=== PATIENT | female | born 1960 | race Caucasian/White ===

== ENCOUNTER 2017-12-04 08:34 | Day surgery (SDC) | payer OTHER ==
[2017-12-03 14:35] VITALS: BMI 33.5
[2017-12-04] MEDS ORDERED: BUPIVACAINE 0.75% IN DEXTROSE/PF 2ML AMPULE NR ONE (09:24)
[2017-12-04] MEDS ORDERED: LIDOCAINE HCL/PF 2% SDV 5ML VIAL ONE (09:24)
[2017-12-04] MEDS ORDERED: MIDAZOLAM HCL 2 MG/2 ML SINGLE DOSE VIAL ONE (09:24)
[2017-12-04] MEDS ORDERED: PROPOFOL 20 ML ONE ×5 (09:24→11:43)
[2017-12-04] MEDS ORDERED: SUCCINYLCHOLINE CHLORIDE 200 MG/10 ML VIAL ONE (09:28)
[2017-12-04] MEDS ORDERED: SEVOFLURANE 250 ML BTL ONE (09:37)
[2017-12-04] MEDS ORDERED: BUPIVACAINE HCL/PF 0.5% (5MG/ML) 10 ML VIAL ONE (09:37)
[2017-12-04] MEDS ORDERED: DESFLURANE GAS 240 ML BOTTLE IH ONE (09:37)
[2017-12-04] MEDS ORDERED: oxyCODONE HCL 5 MG TABLET PO PRN (12:21)
[2017-12-04] MEDS ORDERED: ONDANSETRON 4 MG/2 ML VIAL IVPUSH PRN (12:21)
[2017-12-04] MEDS ORDERED: ACETAMINOPHEN 1000 MG/100 ML VIAL (NON FORMULARY) IVPB ONE (12:21)
--- NOTE | 2017-12-04 12:22 | HP ---
Satellite [facility] - Chief Complaint History of Present Illness: Painfule varicose veins left leg x years. History Source: Patient Limitations to Obtaining History: No Limitations - Past Medical History Allergies/Adverse Reactions: Allergies Allergy/AdvReac Type Severity Reaction Status Date / Time No Known Drug Allergies Allergy Verified 12/03/17 14:25 Cardiovascular: Yes: HTN, Hyperlipdemia ...LMP: 02/25/12 Endocrine: Yes: Diabetes Mellitus - Current Medications Current Medications: Home Medications Medication Instructions Recorded Aspirin Coated [Ecotrin] 81 mg PO DAILY 05/13/12 Calcium 250Mg/Vit-D 125 Units 2 each PO DAILY 05/13/12 [Oscal 250 mg+D] Krill Oil/[place]-3/Dha/Epa [[place]-3 1 each PO DAILY 05/13/12 Krill Oil Softgel] Levothyroxine [Synthroid] 225 mcg PO DAILY 05/13/12 Fenofibrate,Micronized 134 mg PO DAILY 12/03/17 [Fenofibrate] Losartan Potassium 100 mg PO DAILY 12/03/17 Pravastatin Sodium 20 mg PO DAILY 12/03/17 Sitagliptin Phosphate [Januvia -] 25 mg PO DAILY@0700 12/03/17 Satellite Physical Exam - Physical Examination Vital Signs: Vital Signs Period Temp Pulse Resp BP Sys/[place] Pulse Ox Last 24 Hr 98.1 F-98.1 F 79-79 20-20 113-113/78-78 97 General Appearance: Obese ENT: Clear Lung: Clear to auscultation Heart: Regular rate & rhythm Abdomen: Soft Extremities: No edema, Other (Large varicose veins of left anterolateral thigh and lateral calf.) Satellite Impression/Plan - Impression/Plan Impression: Symptomatic varicose veins left leg Operative Procedure: Microphlebectomy left leg Date to be Performed: 12/04/17
[2017-12-04] MEDS ORDERED: ACETAMINOPHEN 325 MG TABLET (FP) PO PRN ×3 (12:24→12:26)
--- NOTE | 2017-12-04 12:24 | OP ---
Operative Note - Note: Operative Date: 12/04/17 Pre-Operative Diagnosis: Painful varicose veins Operation: Microphlebcectomy left leg, >20 incisions Findings: Multiplelarge varicose veins of left thigh, calf and ankle Post-Operative Diagnosis: Same as Pre-op Surgeon: Brian Ellsworth Anesthesiologist/MANAGER OF RECRUITING: Gagan Crawford Anesthesia: Spinal Specimens Removed: Varicose vein segments Estimated Blood Loss (mls): 100 Operative Report Dictated: Yes
[2017-12-04] MEDS ORDERED: LACTATED RINGERS SOLUTION 1,000 ML IV SCH (12:30)
[2017-12-04] MEDS ORDERED: ACETAMINOPHEN INJECTION 100 ML IVPB ONE (14:05)
[2017-12-04 14:48] VITALS: BP 112/79; PULSE 81; TEMP 98
--- NOTE | 2017-12-04 19:59 | OP ---
DATE OF OPERATION: 12/04/2017 SURGEON: Sunita Neal M.D. PROCEDURE: Microphlebectomy of left leg, greater than 20 incisions. PREOPERATIVE: Painful varicose veins, left leg. POSTOPERATIVE: Painful varicose veins, left leg. ANESTHESIA: Spinal. ANESTHESIOLOGIST: Gagan Crawford M.D. OPERATIVE FINDINGS: There were multiple large varicose veins extending from the anterior left thigh laterally down to the lateral calf. There were also several veins at the posterior calf and anterior ankle area. OPERATIVE PROCEDURE: Following routine patient identification and spinal anesthesia, the left leg was prepped with ChloraPrep. Timeout was performed. The varicose veins had been marked preoperatively on the leg with the patient in standing. Stab avulsion technique was then used to remove the marked veins. In brief, an incision was made over the vein with a [place] blade and the vein was then elevated with a vein hook to the level of the skin, where it was grasped with a clamp. Gentle traction allowed the vein to be slowly from subcutaneous tissues until it avulsed. Pressure was applied and then the next point distal vein was treated in a similar fashion. In this manner, all of the marked veins were removed. Greater than 20 incisions were made in total. Leg was then elevated and washed with saline. The wounds were covered with Xeroform gauze, dry gauze, ABD pads, Kerlix, Webril and Coban wrap from foot to thigh. Patient was then transported to the recovery room in stable condition. SUNITA NEAL M.D. [id number] MTDD
--- NOTE | 2017-12-05 15:18 | PATH ---
Surgical Pathology Report Patient Name: TAHMINA ASHFORD [facility]. Rec. #: [id number] /Age/Gender: 1960 (Age: 57) / F Account: [id number] Location: [facility] Taken: 12/04/2017 Received: 12/04/2017 Reported: 12/05/2017 Physicians: Brian Ellsworth M.D. Specimen(s) Received VARICOSE VEINS Clinical History Left varicose veins Final Diagnosis VARICOSE VEINS, LEG, LEFT MICROPHLEBECTOMY: VEINS WITH INTIMAL HYPERTROPHY AND FIBROSIS. Electronically Signed Dilma Hidalgo M.D. Gross Description Received in formalin labeled "varicose veins," is a 4.5 x 3.5 x 0.4 cm aggregate of abundant zimmer portions of vasculature, consistent with varicose veins. Trainer sections are submitted in one cassette. /12/04/2017 saudi12/04/2017
== END 2017-12-04 15:45 | disposition home or self-care (01) ==
LOC: JASU-SURG 08:34
PROVIDERS: ATTEND Surgery
PROC: 06DY0ZZ Extraction of Lower Vein, Open Approach (ICD-10-PCS; principal; 2017-12-04 10:00)
DX: I83.812 Varicose veins of left lower extremity with pain (principal)
CPT/HCPCS: 88304-TC; 94760; J0131

== ENCOUNTER 2018-01-29 07:30 | Day surgery (SDC) | payer OTHER ==
[2018-01-27 11:25] VITALS: BMI 33.6
[2018-01-29] MEDS ORDERED: ONDANSETRON 4 MG/2 ML VIAL IVPUSH PRN (09:01)
[2018-01-29] MEDS ORDERED: PROMETHAZINE HCL 25 MG/1 ML VIAL IVPUSH PRN (09:01)
[2018-01-29] MEDS ORDERED: oxyCODONE HCL 5 MG TABLET PO PRN ×2 (09:01→12:44)
[2018-01-29] MEDS ORDERED: LACTATED RINGERS SOLUTION 1,000 ML IV SCH (09:15)
--- NOTE | 2018-01-29 09:21 | HP ---
Satellite [facility] - Chief Complaint History of Present Illness: 57 year old woman with chronic varicose veins and pain. She has had a left leg phlebectomy and is now ready for treatment of the right leg veins. History Source: Patient - Past Medical History Allergies/Adverse Reactions: Allergies Allergy/AdvReac Type Severity Reaction Status Date / Time No Known Drug Allergies Allergy Verified 01/29/18 07:57 Cardiovascular: Yes: HTN, Hyperlipdemia ...LMP: 02/25/12 Endocrine: Yes: Diabetes Mellitus - Current Medications Current Medications: Home Medications Medication Instructions Recorded Aspirin Coated [Ecotrin] 81 mg PO DAILY 05/13/12 Calcium 250Mg/Vit-D 125 Units 2 each PO DAILY 05/13/12 [Oscal 250 mg+D] Krill Oil/[place]-3/Dha/Epa [[place]-3 1 each PO DAILY 05/13/12 Krill Oil Softgel] Levothyroxine [Synthroid] 225 mcg PO DAILY 05/13/12 Fenofibrate,Micronized 134 mg PO DAILY 12/03/17 [Fenofibrate] Losartan Potassium 100 mg PO DAILY 12/03/17 Pravastatin Sodium 20 mg PO DAILY 12/03/17 Sitagliptin Phosphate [Januvia -] 25 mg PO DAILY@0700 12/03/17 Ergocalciferol [Vitamin D2] 50,000 unit PO Q7D@1000 01/29/18 Satellite Physical Exam - Physical Examination Vital Signs: Vital Signs Period Temp Pulse Resp BP Sys/[place] Pulse Ox Last 24 Hr 98.0 F 81 16 125/80 97 General Appearance: Alert & Oriented x3 ENT: Clear Lung: Clear to auscultation Heart: Regular rate & rhythm Abdomen: Soft Extremities: Other (Multiple varicose vein in medial and lateral thigh and calf. ) [facility] Impression/Plan - Impression/Plan Impression: Symptomatic varicose veins right leg Operative Procedure: Microphlebectomy right leg Date to be Performed: 01/29/18
[2018-01-29] MEDS ORDERED: MIDAZOLAM HCL 2 MG/2 ML SINGLE DOSE VIAL ONE ×3 (09:29→09:44)
[2018-01-29] MEDS ORDERED: ACETAMINOPHEN 325 MG TABLET (FP) PO PRN ×2 (11:11→12:44)
--- NOTE | 2018-01-29 11:13 | OP ---
Operative Note - Note: Operative Date: 01/29/18 Pre-Operative Diagnosis: Painful varicose veins right leg Operation: Microphlebectomy right leg, > 20 incisions Findings: Multiple varicose veins of lateral right thigh and calf and medial calf Post-Operative Diagnosis: Same as Pre-op Surgeon: Brian Ellsworth Anesthesiologist/GALLERY MANAGER: Sandy Sheehan MD Anesthesia: Spinal Specimens Removed: varicose vein segments Estimated Blood Loss (mls): 75 Operative Report Dictated: Yes
--- NOTE | 2018-01-29 13:37 | OP ---
DATE OF OPERATION: 01/29/2018 SURGEON: Brian Neal M.D. PROCEDURE: Microphlebectomy of right leg, greater than 20 incisions. PREOPERATIVE DIAGNOSIS: Varicose veins, right leg, with pain. POSTOPERATIVE DIAGNOSIS: Varicose veins, right leg, with pain. ANESTHESIA: Spinal. ANESTHESIOLOGIST: Sandy Sheehan MD OPERATIVE FINDINGS: There were multiple enlarged veins along the right lateral thigh and calf and right medial calf. OPERATIVE PROCEDURE: Prior to coming to the operating room, the varicose veins of the right lower extremity were marked on the skin with the patient standing. Spinal anesthesia was established, and the right leg was prepped with ChloraPrep. Stab avulsion technique was used to remove all marked veins. In brief, incision was made over varicosity using a [place] blade, and a vein hook was used to elevate the varicosity to the level of the skin, where it was grasped with clamps. Gentle traction allowed the vein to be removed from under the skin until it avulsed. Pressure was applied to control bleeding, and the next more distal vein segment was removed in a similar fashion until all of the veins were removed. The leg was elevated and washed with saline. The wounds were covered with Xeroform gauze, dry gauze, ABD pad, Kerlix wrap, Webril, and a Coban dressing. Patient was then taken to the recovery room in stable condition. BRIAN NEAL M.D. [id number]
[2018-01-29 14:37] VITALS: TEMP 98.1
[2018-01-29 15:59] VITALS: BP 131/78; PULSE 80
--- NOTE | 2018-01-30 15:46 | PATH ---
Surgical Pathology Report Patient Name: TAHMINA ASHFORD [facility]. Rec. #: [id number] /Age/Gender: 1960 (Age: 57) / F Account: [id number] Location: [facility] Taken: 01/29/2018 Received: 01/29/2018 Reported: 01/30/2018 Physicians: Brian Ellsworth M.D. Specimen(s) Received VARICOSE VEINS RIGHT LEG Clinical History Varicose veins right leg Final Diagnosis VARICOSE VEINS, RIGHT LEG, MICROPHLEBECTOMY: CONSISTENT WITH VARICOSE VEINS. Electronically Signed Jo Marino M.D. Gross Description Received in formalin labeled "varicose veins right leg," is a 4.0 x 3.2 x 0.4 cm aggregate of zimmer portions of vasculature, consistent with varicose veins. A compliance representative portion is submitted in one cassette. DL/01/29/2018 saudi/01/29/2018
[2018-01-31 06:06] LABS: HEP.C VIRUS AB <0.1 s/co ratio (0.0-0.9)
== END 2018-01-29 15:15 | disposition home or self-care (01) ==
LOC: JASU-SURG 07:30
PROVIDERS: ATTEND Surgery
PROC: 06DY0ZZ Extraction of Lower Vein, Open Approach (ICD-10-PCS; principal; 2018-01-29 09:00)
DX: I83.811 Varicose veins of right lower extremity with pain (principal)
CPT/HCPCS: 36415; 80074; 82962; 87389; 88304-TC; 94760

== ENCOUNTER 2021-07-19 11:36 | Emergency (ER) | payer OTHER ==
[2021-07-19 11:45] VITALS: BP 148/82; PULSE 99; TEMP 97.5; BMI 31.6
[2021-07-19] MEDS ORDERED: ACETAMINOPHEN 500 MG TABLET (FP) PO ONE (12:38)
[2021-07-19] MEDS ORDERED: DIPHTH,PERTUSS(ACELL),TET 0.5 ML DISP.SYRIN IM ONE ×2 (12:39→12:49)
[2021-07-19] MEDS ORDERED: ACETAMINOPHEN 500 MG TABLET (FP) ONE (12:49)
== END 2021-07-19 14:15 | disposition home or self-care (01) ==
LOC: JERFT 11:36
PROC: 3E0234Z Introduction of Serum, Toxoid and Vaccine into Muscle, Percutaneous Approach (ICD-10-PCS; principal; 2021-07-19)
DX: M25.532 Pain in left wrist (principal)
CPT/HCPCS: 73090-TC-LT-FY; 73110-TC-LT-FY; 90471; 90715; 99283-25

== ENCOUNTER 2021-07-22 00:03 | Emergency (ER) | payer OTHER ==
[2021-07-22 00:13] VITALS: BP 133/78; PULSE 117; TEMP 101.5; BMI 31.8
== END 2021-07-22 01:39 | disposition home or self-care (01) ==
LOC: FER 00:03
DX: J06.9 Acute upper respiratory infection, unspecified (principal); R50.9 Fever, unspecified; J09.X2 Influenza due to identified novel influenza A virus with other respiratory manifestations
CPT/HCPCS: 87651; 87804; 99283-25; C9803-CS; U0003; U0005